=== PATIENT | male | born 1945 | race Caucasian/White ===

== ENCOUNTER 2016-09-18 17:15 | Emergency (ER) | payer OTHER, BC ==
[~2016-09-18 17:15] MED LIST: ASCO1CAP3 PO; ASPI81TA28 PO; CALC600T9; FURO40TA3 PO; LSN40 PO; PANT40TA PO; SIMV20TA5 PO; SULF800T23 PO
== END 2016-09-18 17:40 | disposition left against medical advice (07) ==
LOC: C.EDB 17:16
DX: M25.521 Pain in right elbow (principal)

== ENCOUNTER → 2017-01-01 | Outpatient (CLI) | payer OTHER, BC ==
[2017-01-01 10:00] LABS: CHOLESTEROL/HDL RATIO 3.2; PROSTATE SPECIFIC ANTIGEN 1.88 ng/ml (0.000-4.000)
== END | disposition home or self-care (01) ==
LOC: C.LAB 07:08
PROVIDERS: ATTEND Physician Assistant
DX: E78.00 Pure hypercholesterolemia, unspecified (principal); R35.1 Nocturia

== ENCOUNTER → 2017-10-08 | Outpatient (CLI) | payer OTHER, BC | END | disposition home or self-care (01) | LOC: C.LABBC 15:25 | PROVIDERS: ATTEND Orthopaedic Surgery | DX: M25.462 Effusion, left knee (principal); M25.562 Pain in left knee ==

== ENCOUNTER → 2017-10-11 | Outpatient (CLI) | payer OTHER, BC | END | disposition home or self-care (01) | LOC: C.LAB 12:15 | PROVIDERS: ATTEND Orthopaedic Surgery | DX: M25.462 Effusion, left knee (principal); M25.562 Pain in left knee ==

== ENCOUNTER → 2017-10-15 | Outpatient (CLI) | payer OTHER, BC ==
--- NOTE | 2017-10-15 16:29 | DIAGNOSTIC IMAGING REPORT ---
MRI OF THE LEFT KNEE CLINICAL HISTORY: Anterior left knee pain. COMPARISON STUDY: No priors. TECHNIQUE: MRI of the left knee was performed utilizing proton density, T1, and T2-weighted sequences in the axial, sagittal, coronal planes. IV contrast was not administered for this examination. Note that interpretation is suboptimal without plain film correlate. FINDINGS: Menisci: There is an oblique tear involving the posterior horn of the medial meniscus, best seen on coronal image #15. No flipped fragment is identified. The lateral meniscus is Intact. Ligaments: The anterior and posterior cruciate ligaments are intact. The medial and lateral collateral ligaments are within normal limits. Extensor mechanism: There is tendinopathy with partial-thickness tearing seen at the insertion of the quadriceps tendon. This is best seen on sagittal image #10. No full-thickness tearing or tendinous retraction is seen. There is overlying soft tissue edema. The patellar tendon is maintained. Hoffa's fat pad is normal in appearance. Articular cartilage and bone: There is mild degenerative thinning of the articular cartilage along the weightbearing surface in the medial compartment with foci of periventricular percent fissuring. No full-thickness cartilage loss is identified. Only minimal degenerative thinning is seen involving the articular cartilage in the lateral compartment. Particular cartilage of the patella is well maintained. There is mild thinning of the articular cartilage in the femoral trochlea, lateral greater than medial. There is minimal reactive marrow edema identified within the lateral femoral trochlea. There is no MRI evidence of fracture. Joint effusion: There is a small joint effusion. Soft tissues: There is mild generalized atrophy of the regional musculature. No intramuscular edema is seen. IMPRESSION: 1. There is tendinopathy with partial-thickness tearing seen at the insertion of the quadriceps tendon with mild overlying soft tissue edema. No full-thickness tear or tendinous retraction is identified. 2. There is a small oblique tear involving the posterior horn of the medial meniscus. 3. The lateral meniscus, the cruciate ligaments, and the collateral ligament are maintained. 4. Mild arthritic change as above. 5. Small joint effusion. Electronically signed by: Camacho Ovalles M.D. 10/15/2017 4:28 PM Dictated Date/Time: 10/15/2017 4:22 PM
== END | disposition home or self-care (01) ==
LOC: C.MRIBC 15:15
PROVIDERS: ATTEND Orthopaedic Surgery
DX: S83.242A Other tear of medial meniscus, current injury, left knee, initial encounter (principal); X58.XXXA Exposure to other specified factors, initial encounter

== ENCOUNTER → 2018-01-23 | Outpatient (CLI) | payer OTHER, BC ==
[~2018-01-23] MED LIST changes: +LISI40TA3 PO; -LSN40 PO
== END | disposition home or self-care (01) ==
LOC: C.LAB 07:19
PROVIDERS: ATTEND Internal Medicine
DX: N05.2 Unspecified nephritic syndrome with diffuse membranous glomerulonephritis (principal); I10 Essential (primary) hypertension; D89.9 Disorder involving the immune mechanism, unspecified; M79.1 Myalgia